=== PATIENT | female | born 1980 | race Caucasian/White ===

== ENCOUNTER 2018-05-03 09:29 | Day surgery (SDC) | payer OTHER ==
[2018-05-03] MEDS ORDERED: LIDOCAINE 1%/EPI (1:100,000) (MDV) 20 ML (10:20)
[2018-05-03] MEDS ORDERED: COCAINE 4% 4 ML TOP (10:21)
[2018-05-03] MEDS ORDERED: OXYMETAZOLINE 0.05% 15 ML NAS SPRAY NASAL (10:21)
[2018-05-03] MEDS ORDERED: BACITRACIN/POLYMYXIN 28.35 GM OINT TOP (10:21)
[2018-05-03] MEDS ORDERED: LABETALOL HCL 20MG INJ IV (11:00)
[2018-05-03] MEDS ORDERED: MIDAZOLAM 1 MG/ML 2 ML INJ IV (11:00)
[2018-05-03] MEDS ORDERED: ALBUTEROL 0.083% (NEB) 2.5 MG/3 ML AMP HHN (11:00)
[2018-05-03] MEDS ORDERED: HYDROmorphONE 1 MG/5 ML IV SYRINGE IV ×2 (11:00→15:11)
[2018-05-03] MEDS ORDERED: DIPHENHYDRAMINE 50 MG INJ IV (11:00)
[2018-05-03] MEDS ORDERED: IPRATROPIUM (NEB) 0.5 MG/2.5 ML AMP HHN (11:00)
[2018-05-03] MEDS ORDERED: FENTAnyl 50 MCG/ML VIAL IV ×3 (11:00)
[2018-05-03] MEDS ORDERED: EPHEDrine SULFATE 50 MG/5 ML SYG IV (11:00)
[2018-05-03] MEDS ORDERED: OXYCODONE/ACETAMINOPHEN (5/325) TAB PO (11:00)
[2018-05-03] MEDS ORDERED: MEPERIDINE 25 MG INJ IV (11:00)
[2018-05-03] MEDS ORDERED: hydrALAzine 20 MG INJ IV (11:00)
[2018-05-03] MEDS ORDERED: TRIMETHOBENZAMIDE 100 MG/ML VIAL IM (11:00)
[2018-05-03] MEDS: OXYMETAZOLINE 0.05% 15 ML NAS SPRAY NASAL (11:20)
[2018-05-03] MEDS ORDERED: FENTAnyl 50 MCG/ML VIAL ×3 (11:50→14:10)
[2018-05-03] MEDS ORDERED: MIDAZOLAM 1 MG/ML 2 ML INJ (11:50)
[2018-05-03] MEDS ORDERED: CEFAZOLIN 1 GM INJ (11:50)
[2018-05-03] MEDS ORDERED: GLYCOPYRROLATE 0.4 MG INJ (11:50)
[2018-05-03] MEDS ORDERED: PROPOFOL 20 ML (11:50)
[2018-05-03] MEDS ORDERED: ROCURONIUM 50 MG INJ (11:50)
[2018-05-03] MEDS ORDERED: DEXAMETHASONE 4 MG/ML 5 ML INJ (11:51)
[2018-05-03] MEDS ORDERED: ONDANSETRON 4 MG INJ (11:51)
[2018-05-03] MEDS: LIDOCAINE 1%/EPI (1:100,000) (MDV) 20 ML INJ (12:49)
[2018-05-03] MEDS ORDERED: SUGAMMADEX SODIUM 200 MG/2 ML VIAL IV (14:45)
[2018-05-03] MEDS: HYDROmorphONE 1 MG/5 ML IV SYRINGE IV ×2 (15:16→15:22)
[2018-05-03] MEDS: ONDANSETRON 4 MG INJ IV (15:39)
[2018-05-03] MEDS: OXYCODONE/ACETAMINOPHEN (5/325) TAB PO (15:43)
== END 2018-05-03 17:40 | disposition home or self-care (01) ==
LOC: SDS 09:29
DX: J34.2 Deviated nasal septum (principal); J34.3 Hypertrophy of nasal turbinates; J32.2 Chronic ethmoidal sinusitis; J32.1 Chronic frontal sinusitis; J32.0 Chronic maxillary sinusitis; J32.3 Chronic sphenoidal sinusitis
CPT/HCPCS: 30140; 87070; 87116; 88300; 88304